=== PATIENT | female | born 1995 | race African-American/Black ===

== ENCOUNTER 2022-11-30 11:35 | Outpatient (CLI) | payer OTHER, SELFPAY ==
[2022-11-30 12:47] LABS: Hemoglobin A1C 5.6 % (<5.7)
[2022-12-05 12:14] LABS: Testosterone Total 87 ng/dL (2-45)
[2022-12-05 15:53] LABS: FSH 6.4 mIU/mL (***); LH 17.8 mIU/mL (***); Progesterone 0.4 ng/mL (***)
[2022-12-06 21:16] LABS: Estradiol, Ultrasensitive 49 pg/mL
== END 2022-11-30 11:36 | disposition home or self-care (01) ==
PROVIDERS: Visit Provider Student in an Organized Health Care Education/Training Program
DX: E28.2 Polycystic ovarian syndrome (principal)
CPT/HCPCS: 36415; 82670; 83001; 83002; 83036; 84144; 84403; 84443